=== PATIENT | male | born 1960 ===

== ENCOUNTER 2020-10-03 05:50 | Day surgery (SDC) | payer OTHER ==
[~2020-10-03 05:50] MED LIST: LIPITOR20 MG PO; LOTREL 5-20 MG1 CAP PO
== END 2020-10-03 17:55 | disposition home or self-care (01) ==
LOC: CIR.AMB 05:50
PROVIDERS: ATTEND Orthopaedic Surgery Hand Surgery
DX: S63.591A Other specified sprain of right wrist, initial encounter (principal); M65.841 Other synovitis and tenosynovitis, right hand; Z20.822 Contact with and (suspected) exposure to COVID-19